=== PATIENT | female | born 1980 | race Caucasian/White ===

== ENCOUNTER 2023-09-24 10:01 | Emergency (ER) | payer BC, SELFPAY ==
[2023-09-24 10:15] VITALS: BP 128/79; PULSE 77; RESP 16; TEMP 36.7; O2SAT 99
--- NOTE | 2023-09-24 10:38 | ED.EAR ---
HPI - Ear Problem General Chief complaint: Ear Stated complaint: Left Ear Problem/Neck Swelling Time Seen by Provider: 09/24/23 10:07 History of Present Illness HPI Narrative: Patient presents with left ear pain. And is scratch and soreness behind her left earlobe. Related Data Home Medications Medication Instructions Recorded Confirmed B12 09/24/23 Probiotic 09/24/23 losartan 100 mg tablet mg 09/24/23 metronidazole 500 mg tablet mg 09/24/23 Allergies Allergy/AdvReac Type Severity Reaction Status Date / Time No Known Allergies Allergy Verified 09/24/23 10:07 Review of Systems Review of Systems: CONSTITUTIONAL: Denies fever, chills, or sweats. EYES: Denies visual changes, redness, or discharge. ENT: Denies rhinorrhea, congestion, sore throat, or otalgia. CARDIOVASCULAR: Denies chest pain, palpitations, or edema. RESPIRATORY: Denies cough or dyspnea. GASTROINTESTINAL: Denies abdominal pain, nausea, vomiting, or diarrhea. GENITOURINARY: Denies dysuria or hematuria. SKIN: Denies rash or itching. MUSCULOSKELETAL: Denies back pain, joint pain, or myalgia. NEUROLOGIC: Denies headache, numbness, or weakness. PSYCHIATRIC: Denies anxiety or depression. PMFSH Comments At time of signature, agree with nursing past medical, surgical, social and family history. There is no relevant family history pertinent to the presenting complaint Exam Narrative: GENERAL: Well-appearing, well-nourished, and in no acute distress. HEAD: Normocephalic, atraumatic. EYES: PERRLA and EOMI. ENT: Nares clear, no rhinorrhea or epistaxis. Mucous membranes moist. Scabbed swollen area behind left ear lobe left tympanic membrane bulging with mild erythema to canal. Right TM dullness normal ear canal NECK: Supple. CHEST: Clear to auscultation. No respiratory distress. HEART: Regular rate and rhythm. No murmur heard. Normal peripheral pulses. ABDOMEN: Soft, nontender, nondistended, normal active bowel sounds. EXTREMITIES: Normal range of motion. No edema. SKIN: Warm, dry, no rash. NEURO: No focal deficits. Alert and oriented x3. Almond Coma Scale Eye Opening: Spontaneous 4 Shaan Coma Scale Motor: Obeys Commands 6 Almond Coma Scale Verbal: Oriented 5 Shaan Coma Scale Total 15 Course Course Level of Care: Express Care Visit Vital Signs Vital signs: Vital Signs Temperature 36.7 C 09/24/23 10:15 Pulse Rate 77 09/24/23 10:15 Respiratory Rate 16 09/24/23 10:15 Blood Pressure 128/79 09/24/23 10:15 Pulse Oximetry 99 09/24/23 10:15 Oxygen Delivery Room Air 09/24/23 10:15 Temperature 36.7 C 09/24/23 10:15 Pulse Rate 77 09/24/23 10:15 Respiratory Rate 16 09/24/23 10:15 Blood Pressure 128/79 09/24/23 10:15 Pulse Oximetry 99 09/24/23 10:15 Oxygen Delivery Room Air 09/24/23 10:15 Medical Decision Making Vital Signs Vital Signs: Vital Signs Temperature 36.7 C 09/24/23 10:15 Pulse Rate 77 09/24/23 10:15 Respiratory Rate 16 09/24/23 10:15 Blood Pressure 128/79 09/24/23 10:15 Pulse Oximetry 99 09/24/23 10:15 Oxygen Delivery Room Air 09/24/23 10:15 Temperature 36.7 C 09/24/23 10:15 Pulse Rate 77 09/24/23 10:15 Respiratory Rate 16 09/24/23 10:15 Blood Pressure 128/79 09/24/23 10:15 Pulse Oximetry 99 09/24/23 10:15 Oxygen Delivery Room Air 09/24/23 10:15 Discharge Plan Discharge Clinical Impression: Otitis media, Impetigo Patient Disposition: Home, Self-Care Condition: Stable Instructions: Antibiotic Form Additional Instructions: Apply mupirocin ointment to back of left earlobe as prescribed Take antibiotic with food as prescribed until gone Continue home medications as prescribed by primary care provider If any new or worsening symptoms please go to ER immediately further evaluation treatment Prescriptions: New mupirocin [Centany] 2 % ointment 1 applic topical TID 7 Days Qty: 22 0RF amoxicilli
[2023-09-24 10:43] VITALS: BP 128/79; PULSE 77; RESP 16; TEMP 36.7; O2SAT 99
== END 2023-09-24 10:46 | disposition home or self-care (01) ==
PROVIDERS: Emergency Provider Nurse Practitioner Family
DX: H66.92 Otitis media, unspecified, left ear (principal); L01.00 Impetigo, unspecified
CPT/HCPCS: 99213; G0463